=== PATIENT | female | born 1995 | race Caucasian/White ===

== ENCOUNTER 2021-10-10 14:06 | Observation (INO) | payer MEDICAID ==
[2021-10-10 15:43] VITALS: BP 125/77; PULSE 125
== END 2021-10-10 16:05 | disposition home or self-care (01) ==
LOC: WHC 14:06 → OB 14:55
PROVIDERS: ADMIT Obstetrics & Gynecology; ATTEND Obstetrics & Gynecology
DX: O24.419 Gestational diabetes mellitus in pregnancy, unspecified control (principal); Z3A.32 32 weeks gestation of pregnancy
CPT/HCPCS: 59025; 59426; G0378; 81002

== ENCOUNTER 2021-10-20 14:15 | Observation (INO) | payer MEDICAID, OTHER ==
[2021-10-20] MEDS ORDERED: Sodium Chloride 0.9% 1000 ML 1,000 ML ONE ×2 (14:38→15:39)
[2021-10-20] MEDS ORDERED: Sodium Chloride 0.9% 1000 ML 1,000 ML IV STA ×2 (14:39→15:38)
[2021-10-20] MEDS ORDERED: Zofran 4 MG/2 ML VIAL IV ONE (14:39)
[2021-10-20] MEDS ORDERED: Zofran 4 MG/2 ML VIAL ONE (14:41)
[2021-10-20 14:54] LABS: Absolute Neutrophil Ct (ANC) 12.72 (1.4-6.9); Basophil (Absolute #) 0.03 (0-0.4); Eosinophil % 0.2 % (0.00-5.0); Eosinophil (Absolute #) 0.03 (0-0.5); Hematocrit 32.1 % (35-47); Hemoglobin 9.7 gm/dl (12.0-16.0); Lymphocyte (Absolute #) 0.83 (1.0-4.6); Lymphocytes % 5.7 % (24.0-44.0); Mean Cell Volume 74.8 fl (78-100); Mean Corpuscular Hemoglobin 22.6 pg (26-32); Mean Corpuscular Hgb Concent. 30.2 g/dl (32-36); Mean Platelet Volume 10.4 fl (7.5-11.0); Monocyte (Absolute #) 0.83 (0.0-1.3); Monocytes % 5.7 % (0.0-12.0); Neutrophil % 88.2 % (36.0-66.0); Platelet Count 248 K/mm3 (150-450); Red Blood Count 4.29 M/mm3 (4.1-5.4); Red Cell Distribution Width 17.3 % (11.5-14.0); White Blood Count 14.4 K/mm3 (4.0-10.5)
--- NOTE | 2021-10-20 15:04 | ERPHSYRPT ---
- History of Present Illness Time Seen by Provider: 10/20/21 14:39 Source: patient Exam Limitations: no limitations Patient Subjective Stated Complaint: pt reports vomiting beginning yesterday with diarrhea as well, pt reports approx 12 episodes of vomiting today states sh e is unable to keep food or drink down. pt also reports lower mid abdominal pain that is like an intermittent ache, pt states she doesnt feel like she is having contractions. pt denies any vaginal bleeding or abnormal discharge. Triage Nursing Assessment: pt is aox3, pupils perrl, afebrile, resps easy and non labored, pt radial pulses bounding, equal bilat, cap refill < 2 seconds, pt with abdomen, abdomen tender to the lower mid quadrants, heart tones present at a rate of 164 during exam, strong quality, pt skin is pink warm dry. Physician History: 26 years old 2 para 1 at 34 weeks gestation presented in the ER with c hief complaint of gastroenteritis symptoms since yesterday. Patient reports having multiple episodes of nonprojectile, nonbilious vomiting and is unable to hold anything down. She also reports having multiple loose stool without hematochezia. Denies any hematemesis. Minimal abdominal discomfort/ache at times. Good movements as usual. Denies any pelvic cramping, vaginal bleeding or discharge. Denies any sick contact. No fever or chills reported. Patient feels weak fatigued tired and dehydrated. Has a heart rate in 130s on presentation with heart tones in 160s. Timing/Duration: yesterday, intermittent, gradual onset, worse Severity: moderate Associated Symptoms: nausea, vomiting, weakness Allergies/Adverse Reactions: No Known Drug Allergies Allergy (Verified 10/20/21 14:44) Home Medications: Metformin HCl 500 mg [Glucophage 500 MG] 500 mg PO DAILY 10/10/21 [History] Hx Tetanus, Diphtheria Vaccination/Date Given: Yes Hx Influenza Vaccination/Date Given: No Hx Pneumococcal Vaccination/Date Given: No Immunizations Up to Date: Yes Travel Risk - International Travel Have you traveled outside of the country in past 3 weeks: No - Coronavirus Screening Are you exhibiting any of the following symptoms?: No Close contact with a COVID-19 positive Pt in past 14-21 Days: No - Vaccine Status Have you recieved a Covid-19 vaccination: Yes 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 - Vaccination Dates Date of 2cond Vaccination (if applicable): unk - Review of Systems Constitutional: Fatigue, Weakness Eyes: No Symptoms Ears, Nose, & Throat: No Symptoms Respiratory: No Symptoms Cardiac: No Symptoms Abdominal/Gastrointestinal: Abdominal Pain, Nausea, Vomiting, Diarrhea Genitourinary Symptoms: No Symptoms Musculoskeletal: No Symptoms Skin: No Symptoms Neurological: No Symptoms Psychological: No Symptoms Endocrine: No Symptoms Hematologic/Lymphatic: No Symptoms Immunological/Allergic: No Symptoms - Past Medical History Pertinent Past Medical History: No Endocrine Medical History: Diabetes Type II Other Medical History: gestational DM - Past Surgical History Past Surgical History: Yes Neuro Surgical History: No Pertinent History Cardiac: No Pertinent History Respiratory: No Pertinent History Gastrointestinal: No Pertinent History Genitourinary: No Pertinent History Musculoskeletal: No Pertinent History Female Surgical History: No Pertinent History, Section Other Surgical History: PILONIDAL CYST. 11/16/20 per [facility] - Social History Smoking Status: Never smoker Exposure to second hand smoke: Yes Drug Use: none Patient Lives Alone: No - Female History Hx Now: Yes - Nursing Vital Signs Nursing Vital Signs: Initial Vital Signs Temperature 98.8 F 10/20/21 14:30 Pulse Rate 153 H 10/20/21 14:30 Respiratory Rate 23 10/20/21 14:30 Blood Pressure 134/88 10/20/21 14:30 O2 Sat by Pulse Oximetry 97 10/20/21 14:30 Pain Scale Pain Intensity 0 - Physical Exam General Appearance: no apparent distress, alert Eye Exam: PERRL/EOMI, eyes nml inspection Ears, Nose, Throat Exam: normal ENT inspection Neck Exam: normal inspection, non-tender, supple, full range of motion Respiratory Exam: normal breath sounds, lungs clear Cardiovascular Exam: normal heart sounds, tachycardia Gastrointestinal/Abdomen Exam: soft, normal bowel sounds, other (Gravid uterus), No tenderness Back Exam: normal inspection, normal range of motion Extremity Exam: normal inspection, normal range of motion Neurologic Exam: alert, oriented x 3, cooperative Skin Exam: normal color SpO2 Interpretation: normal SpO2: 97 O2 Delivery: Room Air - Course EKG Interpreted by Me: RATE (155), Sinus Tach, NORMAL AXIS, NORMAL INTERVALS, Non-specific ST Changes Ordered Tests: Medication Summary Discontinued Medications Generic Name Dose Route Start Last Admin Trade Name Freq PRN Reason Stop Dose Admin Acetaminophen 650 mg 10/20/21 18:44 Acetaminophen 325 Mg Tablet PO 11/19/21 18:43 Q4H PRN PRN PAIN AND/OR FEVER Sodium Chloride Confirm 10/20/21 14:38 Sodium Chloride 0.9% 1000 Ml Administered 10/20/21 14:39 Dose 1,000 mls @ ud .ROUTE .STK-MED ONE Sodium Chloride 1,000 mls @ 999 mls/hr 10/20/21 14:39 10/20/21 16:27 Sodium Chloride 0.9% 1000 Ml IV 10/20/21 15:39 Infused .Q1H1M STA Infusion Sodium Chloride 1,000 mls @ 999 mls/hr 10/20/21 15:38 10/20/21 16:46 Sodium Chloride 0.9% 1000 Ml IV 10/20/21 16:38 Infused .Q1H1M STA Infusion Sodium Chloride Confirm 10/20/21 15:39 Sodium Chloride 0.9% 1000 Ml Administered 10/20/21 15:40 Dose 1,000 mls @ ud .ROUTE .STK-MED ONE Ceftriaxone Sodium/Dextrose 1 g in 50 mls @ 100 mls/hr 10/20/21 17:51 10/20/21 18:23 Rocephin 1 Gm-D5w 50 Ml Bag IV 10/20/21 18:20 100 mls/hr STAT STA 100 mls/hr Administration Sodium Chloride 1,000 mls @ 150 mls/hr 10/20/21 18:00 10/20/21 19:48 Sodium Chloride 0.9% 1000 Ml IV 11/19/21 17:59 Not Given .Q6H40M KETURAH Ceftriaxone Sodium/Dextrose Confirm 10/20/21 18:22 Rocephin 1 Gm-D5w 50 Ml Bag Administered 10/20/21 18:23 Dose 1 g in 50 mls @ ud IV .STK-MED ONE Sodium Chloride 1,000 mls @ 150 mls/hr 10/20/21 18:45 10/20/21 19:02 Sodium Chloride 0.9% 1000 Ml IV 11/19/21 18:44 150 mls/hr .Q6H40M KETURAH Administration Lactated Ringer's Confirm 10/20/21 21:53 Lactated Ringers Administered 10/20/21 21:54 Dose 1,000 mls @ ud IV .STK-MED ONE Lactated Ringer's 1,000 mls @ 150 mls/hr 10/20/21 21:55 10/21/21 03:52 Lactated Ringers IV 11/19/21 21:54 150 mls/hr .Q6H40M KETURAH Administration Ondansetron HCl 4 mg 10/20/21 14:39 10/20/21 14:45 Ondansetron Hcl 4 Mg/2 Ml Vial IV 10/20/21 14:40 4 mg STAT ONE Administration Ondansetron HCl Confirm 10/20/21 14:41 Ondansetron Hcl 4 Mg/2 Ml Vial Administered 10/20/21 14:42 Dose 4 mg .ROUTE .STK-MED ONE Ondansetron HCl 4 mg 10/20/21 18:44 Ondansetron Hcl 4 Mg/2 Ml Vial IV 11/19/21 18:43 Q6H PRN PRN NAUSEA/VOMITING Lab/Rad Data: Laboratory Result Diagrams 10/20/21 14:40 10/20/21 14:40 Laboratory Results 10/20/21 10/20/21 10/20/21 Range/Units 16:54 14:45 14:40 WBC (4.0-10.5) K/mm3 RBC (4.1-5.4) M/mm3 Hgb (12.0-16.0) gm/dl Hct (35-47) % MCV (78-100) fl MCH (26-32) pg MCHC (32-36) g/dl RDW (11.5-14.0) % Plt Count (150-450) K/mm3 MPV (7.5-11.0) fl Gran % (36.0-66.0) % Eos # (Auto) (0-0.5) Absolute Lymphs (auto) (1.0-4.6) Absolute Monos (auto) (0.0-1.3) Lymphocytes % (24.0-44.0) % Monocytes % (0.0-12.0) % Eosinophils % (0.00-5.0) % Basophils % (0.0-0.4) % Absolute Granulocytes (1.4-6.9) Basophils # (0-0.4) Sodium 133 L (137-145) mmol/L Potassium 3.9 (3.5-5.1) mmol/L Chloride 105 (98-107) mmol/L Carbon Dioxide 15 L* (22-30) mmol/L Anion Gap 16.5 H (5-15) MEQ/L BUN 3 L (7-17) mg/dL Creatinine 0.44 L (0.52-1.04) mg/dL Estimated GFR > 60.0 ML/MIN Glucose 110 H (74-106) mg/dL Lactic Acid (0.4-2.0) Calcium 8.7 (8.4-10.2) mg/dL Magnesium 1.6 (1.6-2.3) mg/dL Total Bilirubin 0.90 (0.2-1.3) mg/dL AST 99 H (14-36) U/L ALT 119 H (0-35) U/L Alkaline Phosphatase 149 H (38-126) U/L Serum Total Protein 6.6 (6.3-8.2) g/dL Albumin 3.6 (3.5-5.0) g/dL Lipase 59 (23-300) U/L Urine Color YELLOW (YELLOW) Urine Appearance CLOUDY (CLEAR) Urine pH 5.0 (5-6) Ur Specific [place] 1.026 (1.005-1.025) Urine Protein 100 (Negative) Urine Ketones MODERATE (NEGATIVE) Urine Blood NEGATIVE (0-5) Jc/ul Urine Nitrite NEGATIVE (NEGATIVE) Urine Bilirubin NEGATIVE (NEGATIVE) Urine Urobilinogen NEGATIVE (0-1) mg/dL Ur Leukocyte Esterase LARGE (NEGATIVE) Urine WBC (Auto) 11-15 (0-5) /HPF Urine RBC (Auto) 6-10 (0-2) /HPF U Epithel Cells (Auto) FEW (FEW) /HPF Urine Bacteria (Auto) NONE (NEGATIVE) /HPF Urine Mucus (Auto) SLIGHT (NEGATIVE) /HPF Urine Culture Reflexed NO (NO) Urine Glucose 50 (NEGATIVE) mg/dL Influenza Type A Ag NEGATIVE (NEGATIVE) Influenza Type B Ag NEGATIVE (NEGATIVE) RSV (PCR) NEGATIVE (Negative) SARS-CoV-2 (PCR) NEGATIVE (NEGATIVE) 10/20/21 10/20/21 Range/Units 14:40 14:39 WBC 14.4 H (4.0-10.5) K/mm3 RBC 4.29 (4.1-5.4) M/mm3 Hgb 9.7 L (12.0-16.0) gm/dl Hct 32.1 L (35-47) % MCV 74.8 L (78-100) fl MCH 22.6 L (26-32) pg MCHC 30.2 L (32-36) g/dl RDW 17.3 H (11.5-14.0) % Plt Count 248 (150-450) K/mm3 MPV 10.4 (7.5-11.0) fl Gran % 88.2 H (36.0-66.0) % Eos # (Auto) 0.03 (0-0.5) Absolute Lymphs (auto) 0.83 L (1.0-4.6) Absolute Monos (auto) 0.83 (0.0-1.3) Lymphocytes % 5.7 L (24.0-44.0) % Monocytes % 5.7 (0.0-12.0) % Eosinophils % 0.2 (0.00-5.0) % Basophils % 0.2 (0.0-0.4) % Absolute Granulocytes 12.72 H (1.4-6.9) Basophils # 0.03 (0-0.4) Sodium (137-145) mmol/L Potassium (3.5-5.1) mmol/L Chloride (98-107) mmol/L Carbon Dioxide (22-30) mmol/L Anion Gap (5-15) MEQ/L BUN (7-17) mg/dL Creatinine (0.52-1.04) mg/dL Estimated GFR ML/MIN Glucose (74-106) mg/dL Lactic Acid 1.2 (0.4-2.0) Calcium (8.4-10.2) mg/dL Magnesium (1.6-2.3) mg/dL Total Bilirubin (0.2-1.3) mg/dL AST (14-36) U/L ALT (0-35) U/L Alkaline Phosphatase (38-126) U/L Serum Total Protein (6.3-8.2) g/dL Albumin (3.5-5.0) g/dL Lipase (23-300) U/L Urine Color (YELLOW) Urine Appearance (CLEAR) Urine pH (5-6) Ur Specific [place] (1.005-1.025) Urine Protein (Negative) Urine Ketones (NEGATIVE) Urine Blood (0-5) Jc/ul Urine Nitrite (NEGATIVE) Urine Bilirubin (NEGATIVE) Urine Urobilinogen (0-1) mg/dL Ur Leukocyte Esterase (NEGATIVE) Urine WBC (Auto) (0-5) /HPF Urine RBC (Auto) (0-2) /HPF U Epithel Cells (Auto) (FEW) /HPF Urine Bacteria (Auto) (NEGATIVE) /HPF Urine Mucus (Auto) (NEGATIVE) /HPF Urine Culture Reflexed (NO) Urine Glucose (NEGATIVE) mg/dL Influenza Type A Ag (NEGATIVE) Influenza Type B Ag (NEGATIVE) RSV (PCR) (Negative) SARS-CoV-2 (PCR) (NEGATIVE) - Progress Progress: improved, re-examined Progress Note: 10/20/21 17:53 26 years old 34-week gestation is evaluated for gastroenteritis. Patient was very tachycardic on presentation, given 2 boluses of fluid and heart rate improved in 120s. Patient initially had some contraction which subsided with hydration. Does not have any cramping. Work-up consistent with dehydration. Patient does have UTI and I have discussed with Dr. Zafar patient's primary OB, reviewed history, work-up and agreed with giving Rocephin and continue with IV hydration and patient is being admitted for observation. Discussed with : Mg Will see patient in: hospital (observation) Counseled pt/family regarding: lab results, diagnosis - Departure Departure Disposition: Observation Clinical Impression: Gastroenteritis, Dehydration during Qualifiers: Weeks of gestation: 34 weeks Qualified Code(s): Z3A.34 - 34 weeks gestation of Condition: Stable Critical Care Time: No
[2021-10-20 15:05] LABS: Appearance CLOUDY (CLEAR); Bilirubin NEGATIVE (NEGATIVE); Blood NEGATIVE Ery/ul (0-5); Epithelial Cells FEW /HPF (FEW); Glucose 50 mg/dL (NEGATIVE); Ketones MODERATE (NEGATIVE); Leukocyte Esterase LARGE (NEGATIVE); Mucus SLIGHT /HPF (NEGATIVE); Nitrite NEGATIVE (NEGATIVE); Protein,Urine Dip 100 (Negative); Specific Gravity 1.026 (1.005-1.025); Urobilinogen NEGATIVE mg/dL (0-1)
[2021-10-20 15:07] LABS: ALBUMIN 3.6 g/dL (3.5-5.0); ALKALINE PHOSPHATASE 149 U/L (38-126); ANION GAP 16.5 MEQ/L (5-15); BLOOD UREA NITROGEN 3 mg/dL (7-17); CHLORIDE 105 mmol/L (98-107); Calcium 8.7 mg/dL (8.4-10.2); Creatinine 1 0.44 mg/dL (0.52-1.04); EST GLOMERULAR FILTRATION RATE > 60.0 ML/MIN; Glucose 110 mg/dL (74-106); LIPASE 59 U/L (23-300); MAGNESIUM 1.6 mg/dL (1.6-2.3); Potassium 3.9 mmol/L (3.5-5.1); SGOT/AST 99 U/L (14-36); SGPT/ALT 119 U/L (0-35); SODIUM 133 mmol/L (137-145); Total Protein 6.6 g/dL (6.3-8.2)
[2021-10-20 15:08] LABS: Carbon Dioxide 15 mmol/L (22-30)
[2021-10-20 17:42] LABS: INFLUENZA A NEGATIVE (NEGATIVE); INFLUENZA B NEGATIVE (NEGATIVE); RESPIRATORY SYNCTIAL VIRUS NEGATIVE (Negative); SARS-CoV-2 Xpert Express NEGATIVE (NEGATIVE)
[2021-10-20] MEDS ORDERED: ROCEPHIN 1 Gm-D5w 50 ml Bag** 1 G/50 ML IVPB IV STA (17:51)
[2021-10-20] MEDS ORDERED: Sodium Chloride 0.9% 1000 ML 1,000 ML IV SCH ×2 (18:00→18:45)
[2021-10-20] MEDS ORDERED: ROCEPHIN 1 Gm-D5w 50 ml Bag** 1 G/50 ML IVPB IV ONE (18:22)
[2021-10-20] MEDS ORDERED: Zofran 4 MG/2 ML VIAL IV PRN (18:44)
[2021-10-20] MEDS ORDERED: TYLENOL 325 MG PO PRN (18:44)
[2021-10-20] MEDS ORDERED: Lactated Ringers 1,000 ML IV ONE (21:53)
[2021-10-20] MEDS: Lactated Ringers 1,000 ML IV SCH (21:58)
[2021-10-21 02:39] VITALS: O2SAT 97
[2021-10-21] MEDS: Lactated Ringers 1,000 ML IV SCH (03:52)
[2021-10-21 06:21] LABS: Hematocrit 25.8 % (35-47); Hemoglobin 7.6 gm/dl (12.0-16.0); Mean Cell Volume 76.1 fl (78-100); Mean Corpuscular Hemoglobin 22.4 pg (26-32); Mean Corpuscular Hgb Concent. 29.5 g/dl (32-36); Mean Platelet Volume 10.4 fl (7.5-11.0); Platelet Count 205 K/mm3 (150-450); Red Blood Count 3.39 M/mm3 (4.1-5.4); Red Cell Distribution Width 17.2 % (11.5-14.0); White Blood Count 12.2 K/mm3 (4.0-10.5)
[2021-10-21 06:31] LABS: ALBUMIN 2.7 g/dL (3.5-5.0); ALKALINE PHOSPHATASE 109 U/L (38-126); ANION GAP 7.2 MEQ/L (5-15); CHLORIDE 110 mmol/L (98-107); Calcium 7.9 mg/dL (8.4-10.2); Carbon Dioxide 19 mmol/L (22-30); Creatinine 1 0.38 mg/dL (0.52-1.04); EST GLOMERULAR FILTRATION RATE > 60.0 ML/MIN; Glucose 112 mg/dL (74-106); Potassium 3.4 mmol/L (3.5-5.1); SGOT/AST 68 U/L (14-36); SGPT/ALT 89 U/L (0-35); SODIUM 133 mmol/L (137-145); Total Protein 5.5 g/dL (6.3-8.2)
[2021-10-21 06:37] LABS: BLOOD UREA NITROGEN < 2 mg/dL (7-17)
[2021-10-21 07:17] LABS: ANISOCYTOSIS 1+; BAND 1 % (0.0-2.0); Hypochromia 1+; Lymphocytes 11 % (24-44); Monocyte 1 % (0.0-12.0); Neutrophils 87 % (36.0-66.0); Platelet Estimate NORMAL (NORMAL); Polychromasia 1+; Total Cells Counted 100
[2021-10-21 09:07] VITALS: BP 113/66; PULSE 104
--- NOTE | 2021-10-21 09:20 | PCM.HP ---
History of Present Illness - Chief Complaint Chief Complaint: Gastroenteritis History of Present Illness: is a 26 year old female. 26 yo iup 34 wks gestation with hx of previous csection came into er secondary to nausea vomiting diarrhea that began two days ago and not being able to keep anything down. states irregular contx however at this time feeling much better without contx. Medications & Allergies Home Medications: Home Medication List Metformin HCl 500 mg [Glucophage 500 MG] 500 mg PO DAILY 10/10/21 [History Confirmed 10/20/21] Allergies/Adverse Reactions: Allergies Allergy/AdvReac Type Severity Reaction Status Date / Time No Known Drug Allergies Allergy Verified 10/20/21 14:44 - Past Medical History Past Medical History: No Endocrine Medical History: Diabetes Type II Comment: gestational DM - Female History Are you now?: Yes Expected Date of Delivery: 11/30/21 - Past Surgical History Past Surgical History: Yes Neuro Surgical History: No Pertinent History Cardiac History: No Pertinent History Respiratory Surgery: No Pertinent History GI Surgical History: No Pertinent History Genitourinary Surgical Hx: No Pertinent History Musculskeletal Surgical Hx: No Pertinent History Female Surgical History: No Pertinent History, Section Other Surgical History: PILONIDAL CYST. 11/16/20 per [facility] - Social History Smoking Status: Never smoker Exposure to second hand smoke: Yes Alcohol: None Drug Use: none - Physical Exam Vital Signs: Vital Signs - 24 hr Temp Pulse Resp BP BP Pulse Ox 10/21/21 08:00 97.7 F 104 H 18 113/66 10/21/21 02:00 98.5 F 125 H 19 131/75 97 10/21/21 00:07 98.8 F 123 H 20 134/75 95 10/20/21 23:32 97 10/20/21 22:00 98.9 F 124 H 20 126/74 96 10/20/21 20:00 98.7 F 120 H 22 120/69 97 10/20/21 18:52 99.0 F 125 H 20 129/70 10/20/21 18:31 99.0 F 125 H 20 129/70 10/20/21 18:00 99.0 F 125 H 20 129/70 10/20/21 17:06 120 H 18 122/85 98 10/20/21 16:00 121 H 20 124/75 99 10/20/21 14:30 98.8 F 153 H 23 134/88 97 General Appearance: no apparent distress Neurologic Exam: alert Respiratory Exam: normal breath sounds Cardiovascular Exam: regular rate/rhythm Pelvic Exam: not done Results - Labs Lab/Micro Results: Lab Results-Last 24 Hours 10/20/21 10/20/21 10/20/21 Range/Units 14:39 14:40 14:40 WBC 14.4 H (4.0-10.5) K/mm3 RBC 4.29 (4.1-5.4) M/mm3 Hgb 9.7 L (12.0-16.0) gm/dl Hct 32.1 L (35-47) % MCV 74.8 L (78-100) fl MCH 22.6 L (26-32) pg MCHC 30.2 L (32-36) g/dl RDW 17.3 H (11.5-14.0) % Plt Count 248 (150-450) K/mm3 MPV 10.4 (7.5-11.0) fl Gran % 88.2 H (36.0-66.0) % Eos # (Auto) 0.03 (0-0.5) Absolute Lymphs (auto) 0.83 L (1.0-4.6) Absolute Monos (auto) 0.83 (0.0-1.3) Lymphocytes % 5.7 L (24.0-44.0) % Monocytes % 5.7 (0.0-12.0) % Eosinophils % 0.2 (0.00-5.0) % Basophils % 0.2 (0.0-0.4) % Absolute Granulocytes 12.72 H (1.4-6.9) Segmented Neutrophils (36.0-66.0) % Band Neutrophils (0.0-2.0) % Lymphocytes (Manual) (24-44) % Monocytes (Manual) (0.0-12.0) % Basophils # 0.03 (0-0.4) Hypochromia Platelet Estimate (NORMAL) RBC Morphology Polychromasia Anisocytosis Sodium 133 L (137-145) mmol/L Potassium 3.9 (3.5-5.1) mmol/L Chloride 105 (98-107) mmol/L Carbon Dioxide 15 L* (22-30) mmol/L Anion Gap 16.5 H (5-15) MEQ/L BUN 3 L (7-17) mg/dL Creatinine 0.44 L (0.52-1.04) mg/dL Estimated GFR > 60.0 ML/MIN Glucose 110 H (74-106) mg/dL POC Glucometer (74 to 106) mg/dL Lactic Acid 1.2 (0.4-2.0) Calcium 8.7 (8.4-10.2) mg/dL Magnesium 1.6 (1.6-2.3) mg/dL Total Bilirubin 0.90 (0.2-1.3) mg/dL AST 99 H (14-36) U/L ALT 119 H (0-35) U/L Alkaline Phosphatase 149 H (38-126) U/L Serum Total Protein 6.6 (6.3-8.2) g/dL Albumin 3.6 (3.5-5.0) g/dL Lipase 59 (23-300) U/L Free T4 (0.76-1.46) ng/dL TSH 3rd Generation (0.47-4.68) mIU/L Urine Color (YELLOW) Urine Appearance (CLEAR) Urine pH (5-6) Ur Specific [place] (1.005-1.025) Urine Protein (Negative) Urine Ketones (NEGATIVE) Urine Blood (0-5) Jc/ul Urine Nitrite (NEGATIVE) Urine Bilirubin (NEGATIVE) Urine Urobilinogen (0-1) mg/dL Ur Leukocyte Esterase (NEGATIVE) Urine WBC (Auto) (0-5) /HPF Urine RBC (Auto) (0-2) /HPF U Epithel Cells (Auto) (FEW) /HPF Urine Bacteria (Auto) (NEGATIVE) /HPF Urine Mucus (Auto) (NEGATIVE) /HPF Urine Culture Reflexed (NO) Urine Glucose (NEGATIVE) mg/dL Influenza Type A Ag (NEGATIVE) Influenza Type B Ag (NEGATIVE) RSV (PCR) (Negative) SARS-CoV-2 (PCR) (NEGATIVE) 10/20/21 10/20/21 10/20/21 Range/Units 14:45 16:54 21:03 WBC (4.0-10.5) K/mm3 RBC (4.1-5.4) M/mm3 Hgb (12.0-16.0) gm/dl Hct (35-47) % MCV (78-100) fl MCH (26-32) pg MCHC (32-36) g/dl RDW (11.5-14.0) % Plt Count (150-450) K/mm3 MPV (7.5-11.0) fl Gran % (36.0-66.0) % Eos # (Auto) (0-0.5) Absolute Lymphs (auto) (1.0-4.6) Absolute Monos (auto) (0.0-1.3) Lymphocytes % (24.0-44.0) % Monocytes % (0.0-12.0) % Eosinophils % (0.00-5.0) % Basophils % (0.0-0.4) % Absolute Granulocytes (1.4-6.9) Segmented Neutrophils (36.0-66.0) % Band Neutrophils (0.0-2.0) % Lymphocytes (Manual) (24-44) % Monocytes (Manual) (0.0-12.0) % Basophils # (0-0.4) Hypochromia Platelet Estimate (NORMAL) RBC Morphology Polychromasia Anisocytosis Sodium (137-145) mmol/L Potassium (3.5-5.1) mmol/L Chloride (98-107) mmol/L Carbon Dioxide (22-30) mmol/L Anion Gap (5-15) MEQ/L BUN (7-17) mg/dL Creatinine (0.52-1.04) mg/dL Estimated GFR ML/MIN Glucose (74-106) mg/dL POC Glucometer 86 (74 to 106) mg/dL Lactic Acid (0.4-2.0) Calcium (8.4-10.2) mg/dL Magnesium (1.6-2.3) mg/dL Total Bilirubin (0.2-1.3) mg/dL AST (14-36) U/L ALT (0-35) U/L Alkaline Phosphatase (38-126) U/L Serum Total Protein (6.3-8.2) g/dL Albumin (3.5-5.0) g/dL Lipase (23-300) U/L Free T4 (0.76-1.46) ng/dL TSH 3rd Generation (0.47-4.68) mIU/L Urine Color YELLOW (YELLOW) Urine Appearance CLOUDY (CLEAR) Urine pH 5.0 (5-6) Ur Specific [place] 1.026 (1.005-1.025) Urine Protein 100 (Negative) Urine Ketones MODERATE (NEGATIVE) Urine Blood NEGATIVE (0-5) Jc/ul Urine Nitrite NEGATIVE (NEGATIVE) Urine Bilirubin NEGATIVE (NEGATIVE) Urine Urobilinogen NEGATIVE (0-1) mg/dL Ur Leukocyte Esterase LARGE (NEGATIVE) Urine WBC (Auto) 11-15 (0-5) /HPF Urine RBC (Auto) 6-10 (0-2) /HPF U Epithel Cells (Auto) FEW (FEW) /HPF Urine Bacteria (Auto) NONE (NEGATIVE) /HPF Urine Mucus (Auto) SLIGHT (NEGATIVE) /HPF Urine Culture Reflexed NO (NO) Urine Glucose 50 (NEGATIVE) mg/dL Influenza Type A Ag NEGATIVE (NEGATIVE) Influenza Type B Ag NEGATIVE (NEGATIVE) RSV (PCR) NEGATIVE (Negative) SARS-CoV-2 (PCR) NEGATIVE (NEGATIVE) 10/21/21 10/21/21 10/21/21 Range/Units 05:40 05:40 05:40 WBC 12.2 H (4.0-10.5) K/mm3 RBC 3.39 L (4.1-5.4) M/mm3 Hgb 7.6 L D (12.0-16.0) gm/dl Hct 25.8 L (35-47) % MCV 76.1 L (78-100) fl MCH 22.4 L (26-32) pg MCHC 29.5 L (32-36) g/dl RDW 17.2 H (11.5-14.0) % Plt Count 205 (150-450) K/mm3 MPV 10.4 (7.5-11.0) fl Gran % (36.0-66.0) % Eos # (Auto) (0-0.5) Absolute Lymphs (auto) (1.0-4.6) Absolute Monos (auto) (0.0-1.3) Lymphocytes % (24.0-44.0) % Monocytes % (0.0-12.0) % Eosinophils % (0.00-5.0) % Basophils % (0.0-0.4) % Absolute Granulocytes (1.4-6.9) Segmented Neutrophils 87 H (36.0-66.0) % Band Neutrophils 1 (0.0-2.0) % Lymphocytes (Manual) 11 L (24-44) % Monocytes (Manual) 1 (0.0-12.0) % Basophils # (0-0.4) Hypochromia 1+ Platelet Estimate NORMAL (NORMAL) RBC Morphology ABNORMAL Polychromasia 1+ Anisocytosis 1+ Sodium 133 L (137-145) mmol/L Potassium 3.4 L (3.5-5.1) mmol/L Chloride 110 H (98-107) mmol/L Carbon Dioxide 19 L (22-30) mmol/L Anion Gap 7.2 (5-15) MEQ/L BUN < 2 L (7-17) mg/dL Creatinine 0.38 L (0.52-1.04) mg/dL Estimated GFR > 60.0 ML/MIN Glucose 112 H (74-106) mg/dL POC Glucometer (74 to 106) mg/dL Lactic Acid (0.4-2.0) Calcium 7.9 L (8.4-10.2) mg/dL Magnesium (1.6-2.3) mg/dL Total Bilirubin 0.60 (0.2-1.3) mg/dL AST 68 H (14-36) U/L ALT 89 H (0-35) U/L Alkaline Phosphatase 109 (38-126) U/L Serum Total Protein 5.5 L (6.3-8.2) g/dL Albumin 2.7 L (3.5-5.0) g/dL Lipase (23-300) U/L Free T4 (0.76-1.46) ng/dL TSH 3rd Generation 1.100 (0.47-4.68) mIU/L Urine Color (YELLOW) Urine Appearance (CLEAR) Urine pH (5-6) Ur Specific [place] (1.005-1.025) Urine Protein (Negative) Urine Ketones (NEGATIVE) Urine Blood (0-5) Jc/ul Urine Nitrite (NEGATIVE) Urine Bilirubin (NEGATIVE) Urine Urobilinogen (0-1) mg/dL Ur Leukocyte Esterase (NEGATIVE) Urine WBC (Auto) (0-5) /HPF Urine RBC (Auto) (0-2) /HPF U Epithel Cells (Auto) (FEW) /HPF Urine Bacteria (Auto) (NEGATIVE) /HPF Urine Mucus (Auto) (NEGATIVE) /HPF Urine Culture Reflexed (NO) Urine Glucose (NEGATIVE) mg/dL Influenza Type A Ag (NEGATIVE) Influenza Type B Ag (NEGATIVE) RSV (PCR) (Negative) SARS-CoV-2 (PCR) (NEGATIVE) 10/21/21 Range/Units 05:40 WBC (4.0-10.5) K/mm3 RBC (4.1-5.4) M/mm3 Hgb (12.0-16.0) gm/dl Hct (35-47) % MCV (78-100) fl MCH (26-32) pg MCHC (32-36) g/dl RDW (11.5-14.0) % Plt Count (150-450) K/mm3 MPV (7.5-11.0) fl Gran % (36.0-66.0) % Eos # (Auto) (0-0.5) Absolute Lymphs (auto) (1.0-4.6) Absolute Monos (auto) (0.0-1.3) Lymphocytes % (24.0-44.0) % Monocytes % (0.0-12.0) % Eosinophils % (0.00-5.0) % Basophils % (0.0-0.4) % Absolute Granulocytes (1.4-6.9) Segmented Neutrophils (36.0-66.0) % Band Neutrophils (0.0-2.0) % Lymphocytes (Manual) (24-44) % Monocytes (Manual) (0.0-12.0) % Basophils # (0-0.4) Hypochromia Platelet Estimate (NORMAL) RBC Morphology Polychromasia Anisocytosis Sodium (137-145) mmol/L Potassium (3.5-5.1) mmol/L Chloride (98-107) mmol/L Carbon Dioxide (22-30) mmol/L Anion Gap (5-15) MEQ/L BUN (7-17) mg/dL Creatinine (0.52-1.04) mg/dL Estimated GFR ML/MIN Glucose (74-106) mg/dL POC Glucometer (74 to 106) mg/dL Lactic Acid (0.4-2.0) Calcium (8.4-10.2) mg/dL Magnesium (1.6-2.3) mg/dL Total Bilirubin (0.2-1.3) mg/dL AST (14-36) U/L ALT (0-35) U/L Alkaline Phosphatase (38-126) U/L Serum Total Protein (6.3-8.2) g/dL Albumin (3.5-5.0) g/dL Lipase (23-300) U/L Free T4 1.15 (0.76-1.46) ng/dL TSH 3rd Generation (0.47-4.68) mIU/L Urine Color (YELLOW) Urine Appearance (CLEAR) Urine pH (5-6) Ur Specific [place] (1.005-1.025) Urine Protein (Negative) Urine Ketones (NEGATIVE) Urine Blood (0-5) Jc/ul Urine Nitrite (NEGATIVE) Urine Bilirubin (NEGATIVE) Urine Urobilinogen (0-1) mg/dL Ur Leukocyte Esterase (NEGATIVE) Urine WBC (Auto) (0-5) /HPF Urine RBC (Auto) (0-2) /HPF U Epithel Cells (Auto) (FEW) /HPF Urine Bacteria (Auto) (NEGATIVE) /HPF Urine Mucus (Auto) (NEGATIVE) /HPF Urine Culture Reflexed (NO) Urine Glucose (NEGATIVE) mg/dL Influenza Type A Ag (NEGATIVE) Influenza Type B Ag (NEGATIVE) RSV (PCR) (Negative) SARS-CoV-2 (PCR) (NEGATIVE) Accuchecks Date 10/21/21 Date 10/20/21 Time 06:30 Time 21:00 Assessment/Plan (1) Gastroenteritis Current Visit: Yes Status: Acute Code(s): K52.9 - NONINFECTIVE GASTROENTERITIS AND COLITIS, UNSPECIFIED
--- NOTE | 2021-10-21 09:26 | PCM.DS ---
Discharge Summary Date of Admission: 10/20/21 18:31 Admitting Physician: DWAYNE WHITE DO Consults: Consults on Case 10/21/21 08:00 Consult Physician ROUTINE Primary Care Provider: NO FAMILY DOCTOR Allergies Allergies No Known Drug Allergies Allergy (Verified 10/20/21 14:44) Hospital Summary - Hospital Course Hospital Course: pt is 26 yo and 34 wks gestation admitted for observationon oct 20 for gastroenteritis and was given iv hydration and zofran and now feeling much better without diarrhea, vomiting, or nausea. states feeling much better. labs reviewed with her and understands to call office for worsening condition. all questions answered to her satisfaction and at this time pt is stable for discharge. pt has an appt this week to fu in office. - Vitals & Intake/Output Vital Signs: Vital Signs Temperature 97.7 F 10/21/21 08:00 Pulse Rate 104 H 10/21/21 08:00 Respiratory Rate 18 10/21/21 08:00 Blood Pressure 113/66 10/21/21 08:00 O2 Sat by Pulse Oximetry 97 10/21/21 02:00 Intake & Output: Intake & Output 10/18/21 10/19/21 10/20/21 10/21/21 11:59 11:59 11:59 11:59 Intake Total 2634 Output Total 2400 Balance 234 Weight 90.718 kg - Lab Result Diagrams: 10/21/21 05:40 10/21/21 05:40 Lab Results-Last 24 Hrs: Lab Results-Last 24 Hours 10/20/21 10/20/21 10/20/21 Range/Units 14:39 14:40 14:40 WBC 14.4 H (4.0-10.5) K/mm3 RBC 4.29 (4.1-5.4) M/mm3 Hgb 9.7 L (12.0-16.0) gm/dl Hct 32.1 L (35-47) % MCV 74.8 L (78-100) fl MCH 22.6 L (26-32) pg MCHC 30.2 L (32-36) g/dl RDW 17.3 H (11.5-14.0) % Plt Count 248 (150-450) K/mm3 MPV 10.4 (7.5-11.0) fl Gran % 88.2 H (36.0-66.0) % Eos # (Auto) 0.03 (0-0.5) Absolute Lymphs (auto) 0.83 L (1.0-4.6) Absolute Monos (auto) 0.83 (0.0-1.3) Lymphocytes % 5.7 L (24.0-44.0) % Monocytes % 5.7 (0.0-12.0) % Eosinophils % 0.2 (0.00-5.0) % Basophils % 0.2 (0.0-0.4) % Absolute Granulocytes 12.72 H (1.4-6.9) Segmented Neutrophils (36.0-66.0) % Band Neutrophils (0.0-2.0) % Lymphocytes (Manual) (24-44) % Monocytes (Manual) (0.0-12.0) % Basophils # 0.03 (0-0.4) Hypochromia Platelet Estimate (NORMAL) RBC Morphology Polychromasia Anisocytosis Sodium 133 L (137-145) mmol/L Potassium 3.9 (3.5-5.1) mmol/L Chloride 105 (98-107) mmol/L Carbon Dioxide 15 L* (22-30) mmol/L Anion Gap 16.5 H (5-15) MEQ/L BUN 3 L (7-17) mg/dL Creatinine 0.44 L (0.52-1.04) mg/dL Estimated GFR > 60.0 ML/MIN Glucose 110 H (74-106) mg/dL POC Glucometer (74 to 106) mg/dL Lactic Acid 1.2 (0.4-2.0) Calcium 8.7 (8.4-10.2) mg/dL Magnesium 1.6 (1.6-2.3) mg/dL Total Bilirubin 0.90 (0.2-1.3) mg/dL AST 99 H (14-36) U/L ALT 119 H (0-35) U/L Alkaline Phosphatase 149 H (38-126) U/L Serum Total Protein 6.6 (6.3-8.2) g/dL Albumin 3.6 (3.5-5.0) g/dL Lipase 59 (23-300) U/L Free T4 (0.76-1.46) ng/dL TSH 3rd Generation (0.47-4.68) mIU/L Urine Color (YELLOW) Urine Appearance (CLEAR) Urine pH (5-6) Ur Specific [place] (1.005-1.025) Urine Protein (Negative) Urine Ketones (NEGATIVE) Urine Blood (0-5) Jc/ul Urine Nitrite (NEGATIVE) Urine Bilirubin (NEGATIVE) Urine Urobilinogen (0-1) mg/dL Ur Leukocyte Esterase (NEGATIVE) Urine WBC (Auto) (0-5) /HPF Urine RBC (Auto) (0-2) /HPF U Epithel Cells (Auto) (FEW) /HPF Urine Bacteria (Auto) (NEGATIVE) /HPF Urine Mucus (Auto) (NEGATIVE) /HPF Urine Culture Reflexed (NO) Urine Glucose (NEGATIVE) mg/dL Influenza Type A Ag (NEGATIVE) Influenza Type B Ag (NEGATIVE) RSV (PCR) (Negative) SARS-CoV-2 (PCR) (NEGATIVE) 10/20/21 10/20/21 10/20/21 Range/Units 14:45 16:54 21:03 WBC (4.0-10.5) K/mm3 RBC (4.1-5.4) M/mm3 Hgb (12.0-16.0) gm/dl Hct (35-47) % MCV (78-100) fl MCH (26-32) pg MCHC (32-36) g/dl RDW (11.5-14.0) % Plt Count (150-450) K/mm3 MPV (7.5-11.0) fl Gran % (36.0-66.0) % Eos # (Auto) (0-0.5) Absolute Lymphs (auto) (1.0-4.6) Absolute Monos (auto) (0.0-1.3) Lymphocytes % (24.0-44.0) % Monocytes % (0.0-12.0) % Eosinophils % (0.00-5.0) % Basophils % (0.0-0.4) % Absolute Granulocytes (1.4-6.9) Segmented Neutrophils (36.0-66.0) % Band Neutrophils (0.0-2.0) % Lymphocytes (Manual) (24-44) % Monocytes (Manual) (0.0-12.0) % Basophils # (0-0.4) Hypochromia Platelet Estimate (NORMAL) RBC Morphology Polychromasia Anisocytosis Sodium (137-145) mmol/L Potassium (3.5-5.1) mmol/L Chloride (98-107) mmol/L Carbon Dioxide (22-30) mmol/L Anion Gap (5-15) MEQ/L BUN (7-17) mg/dL Creatinine (0.52-1.04) mg/dL Estimated GFR ML/MIN Glucose (74-106) mg/dL POC Glucometer 86 (74 to 106) mg/dL Lactic Acid (0.4-2.0) Calcium (8.4-10.2) mg/dL Magnesium (1.6-2.3) mg/dL Total Bilirubin (0.2-1.3) mg/dL AST (14-36) U/L ALT (0-35) U/L Alkaline Phosphatase (38-126) U/L Serum Total Protein (6.3-8.2) g/dL Albumin (3.5-5.0) g/dL Lipase (23-300) U/L Free T4 (0.76-1.46) ng/dL TSH 3rd Generation (0.47-4.68) mIU/L Urine Color YELLOW (YELLOW) Urine Appearance CLOUDY (CLEAR) Urine pH 5.0 (5-6) Ur Specific [place] 1.026 (1.005-1.025) Urine Protein 100 (Negative) Urine Ketones MODERATE (NEGATIVE) Urine Blood NEGATIVE (0-5) Jc/ul Urine Nitrite NEGATIVE (NEGATIVE) Urine Bilirubin NEGATIVE (NEGATIVE) Urine Urobilinogen NEGATIVE (0-1) mg/dL Ur Leukocyte Esterase LARGE (NEGATIVE) Urine WBC (Auto) 11-15 (0-5) /HPF Urine RBC (Auto) 6-10 (0-2) /HPF U Epithel Cells (Auto) FEW (FEW) /HPF Urine Bacteria (Auto) NONE (NEGATIVE) /HPF Urine Mucus (Auto) SLIGHT (NEGATIVE) /HPF Urine Culture Reflexed NO (NO) Urine Glucose 50 (NEGATIVE) mg/dL Influenza Type A Ag NEGATIVE (NEGATIVE) Influenza Type B Ag NEGATIVE (NEGATIVE) RSV (PCR) NEGATIVE (Negative) SARS-CoV-2 (PCR) NEGATIVE (NEGATIVE) 10/21/21 10/21/21 10/21/21 Range/Units 05:40 05:40 05:40 WBC 12.2 H (4.0-10.5) K/mm3 RBC 3.39 L (4.1-5.4) M/mm3 Hgb 7.6 L D (12.0-16.0) gm/dl Hct 25.8 L (35-47) % MCV 76.1 L (78-100) fl MCH 22.4 L (26-32) pg MCHC 29.5 L (32-36) g/dl RDW 17.2 H (11.5-14.0) % Plt Count 205 (150-450) K/mm3 MPV 10.4 (7.5-11.0) fl Gran % (36.0-66.0) % Eos # (Auto) (0-0.5) Absolute Lymphs (auto) (1.0-4.6) Absolute Monos (auto) (0.0-1.3) Lymphocytes % (24.0-44.0) % Monocytes % (0.0-12.0) % Eosinophils % (0.00-5.0) % Basophils % (0.0-0.4) % Absolute Granulocytes (1.4-6.9) Segmented Neutrophils 87 H (36.0-66.0) % Band Neutrophils 1 (0.0-2.0) % Lymphocytes (Manual) 11 L (24-44) % Monocytes (Manual) 1 (0.0-12.0) % Basophils # (0-0.4) Hypochromia 1+ Platelet Estimate NORMAL (NORMAL) RBC Morphology ABNORMAL Polychromasia 1+ Anisocytosis 1+ Sodium 133 L (137-145) mmol/L Potassium 3.4 L (3.5-5.1) mmol/L Chloride 110 H (98-107) mmol/L Carbon Dioxide 19 L (22-30) mmol/L Anion Gap 7.2 (5-15) MEQ/L BUN < 2 L (7-17) mg/dL Creatinine 0.38 L (0.52-1.04) mg/dL Estimated GFR > 60.0 ML/MIN Glucose 112 H (74-106) mg/dL POC Glucometer (74 to 106) mg/dL Lactic Acid (0.4-2.0) Calcium 7.9 L (8.4-10.2) mg/dL Magnesium (1.6-2.3) mg/dL Total Bilirubin 0.60 (0.2-1.3) mg/dL AST 68 H (14-36) U/L ALT 89 H (0-35) U/L Alkaline Phosphatase 109 (38-126) U/L Serum Total Protein 5.5 L (6.3-8.2) g/dL Albumin 2.7 L (3.5-5.0) g/dL Lipase (23-300) U/L Free T4 (0.76-1.46) ng/dL TSH 3rd Generation 1.100 (0.47-4.68) mIU/L Urine Color (YELLOW) Urine Appearance (CLEAR) Urine pH (5-6) Ur Specific [place] (1.005-1.025) Urine Protein (Negative) Urine Ketones (NEGATIVE) Urine Blood (0-5) Jc/ul Urine Nitrite (NEGATIVE) Urine Bilirubin (NEGATIVE) Urine Urobilinogen (0-1) mg/dL Ur Leukocyte Esterase (NEGATIVE) Urine WBC (Auto) (0-5) /HPF Urine RBC (Auto) (0-2) /HPF U Epithel Cells (Auto) (FEW) /HPF Urine Bacteria (Auto) (NEGATIVE) /HPF Urine Mucus (Auto) (NEGATIVE) /HPF Urine Culture Reflexed (NO) Urine Glucose (NEGATIVE) mg/dL Influenza Type A Ag (NEGATIVE) Influenza Type B Ag (NEGATIVE) RSV (PCR) (Negative) SARS-CoV-2 (PCR) (NEGATIVE) 10/21/21 Range/Units 05:40 WBC (4.0-10.5) K/mm3 RBC (4.1-5.4) M/mm3 Hgb (12.0-16.0) gm/dl Hct (35-47) % MCV (78-100) fl MCH (26-32) pg MCHC (32-36) g/dl RDW (11.5-14.0) % Plt Count (150-450) K/mm3 MPV (7.5-11.0) fl Gran % (36.0-66.0) % Eos # (Auto) (0-0.5) Absolute Lymphs (auto) (1.0-4.6) Absolute Monos (auto) (0.0-1.3) Lymphocytes % (24.0-44.0) % Monocytes % (0.0-12.0) % Eosinophils % (0.00-5.0) % Basophils % (0.0-0.4) % Absolute Granulocytes (1.4-6.9) Segmented Neutrophils (36.0-66.0) % Band Neutrophils (0.0-2.0) % Lymphocytes (Manual) (24-44) % Monocytes (Manual) (0.0-12.0) % Basophils # (0-0.4) Hypochromia Platelet Estimate (NORMAL) RBC Morphology Polychromasia Anisocytosis Sodium (137-145) mmol/L Potassium (3.5-5.1) mmol/L Chloride (98-107) mmol/L Carbon Dioxide (22-30) mmol/L Anion Gap (5-15) MEQ/L BUN (7-17) mg/dL Creatinine (0.52-1.04) mg/dL Estimated GFR ML/MIN Glucose (74-106) mg/dL POC Glucometer (74 to 106) mg/dL Lactic Acid (0.4-2.0) Calcium (8.4-10.2) mg/dL Magnesium (1.6-2.3) mg/dL Total Bilirubin (0.2-1.3) mg/dL AST (14-36) U/L ALT (0-35) U/L Alkaline Phosphatase (38-126) U/L Serum Total Protein (6.3-8.2) g/dL Albumin (3.5-5.0) g/dL Lipase (23-300) U/L Free T4 1.15 (0.76-1.46) ng/dL TSH 3rd Generation (0.47-4.68) mIU/L Urine Color (YELLOW) Urine Appearance (CLEAR) Urine pH (5-6) Ur Specific [place] (1.005-1.025) Urine Protein (Negative) Urine Ketones (NEGATIVE) Urine Blood (0-5) Jc/ul Urine Nitrite (NEGATIVE) Urine Bilirubin (NEGATIVE) Urine Urobilinogen (0-1) mg/dL Ur Leukocyte Esterase (NEGATIVE) Urine WBC (Auto) (0-5) /HPF Urine RBC (Auto) (0-2) /HPF U Epithel Cells (Auto) (FEW) /HPF Urine Bacteria (Auto) (NEGATIVE) /HPF Urine Mucus (Auto) (NEGATIVE) /HPF Urine Culture Reflexed (NO) Urine Glucose (NEGATIVE) mg/dL Influenza Type A Ag (NEGATIVE) Influenza Type B Ag (NEGATIVE) RSV (PCR) (Negative) SARS-CoV-2 (PCR) (NEGATIVE) Micro Results-Entire Visit: Accuchecks Date 10/21/21 Date 10/20/21 Time 06:30 Time 21:00 - Procedures and Test Procedures and Tests throughout Hospitalization: Therapy Orders & Screens 10/21/21 04:50 EKG ROUTINE Comment: Diagnosis: Gastroenteritis Final Diagnosis/Problem List - Final Discharge Diagnosis/Problem (1) Gastroenteritis Current Visit: Yes Status: Acute Code(s): K52.9 - NONINFECTIVE GASTROENTERITIS AND COLITIS, UNSPECIFIED - Discharge Disposition: Home, Self-Care Condition: Stable Prescriptions: No Action Metformin HCl 500 mg [Glucophage 500 MG] 500 mg PO DAILY Follow up with: DOCTOR,NO FAMILY [Primary Care Provider] - DWAYNE WHITE DO [ACTIVE STAFF] - Call for Appointment (fu office as scheduled)
== END 2021-10-21 10:10 | disposition home or self-care (01) ==
LOC: ED 14:15 → OB 18:31
PROVIDERS: ADMIT Obstetrics & Gynecology; ATTEND Obstetrics & Gynecology
DX: O26.893 Other specified pregnancy related conditions, third trimester (principal); K52.9 Noninfective gastroenteritis and colitis, unspecified; O24.419 Gestational diabetes mellitus in pregnancy, unspecified control; O23.43 Unspecified infection of urinary tract in pregnancy, third trimester; N39.0 Urinary tract infection, site not specified; E86.0 Dehydration; R00.0 Tachycardia, unspecified; Z3A.34 34 weeks gestation of pregnancy; Z79.899 Other long term (current) drug therapy
CPT/HCPCS: 0241U; 36000; 36415; 80053; 81001; 82947; 83605; 83690; 83735; 84439; 84443; 85025; 93005; 96360; 96374; 99285; G0378; J0696; J2405

== ENCOUNTER 2021-10-31 14:55 | Observation (INO) | payer OTHER ==
[2021-10-31 16:42] VITALS: BP 123/74; PULSE 111
== END 2021-10-31 16:17 | disposition home or self-care (01) ==
LOC: WHC 14:55 → OB 15:24
PROVIDERS: ADMIT Obstetrics & Gynecology; ATTEND Obstetrics & Gynecology
DX: O24.419 Gestational diabetes mellitus in pregnancy, unspecified control (principal); Z3A.35 35 weeks gestation of pregnancy
CPT/HCPCS: 59025; 59426; 81002; 99213; G0378

== ENCOUNTER 2021-11-07 16:00 | Observation (INO) | payer OTHER | END 2021-11-07 16:45 | disposition home or self-care (01) | LOC: MED SURG 16:00 | PROVIDERS: ADMIT Obstetrics & Gynecology; ATTEND Obstetrics & Gynecology | DX: O24.419 Gestational diabetes mellitus in pregnancy, unspecified control (principal); Z3A.36 36 weeks gestation of pregnancy | CPT/HCPCS: 59025; G0378 ==

== ENCOUNTER 2021-11-14 12:55 | Observation (INO) | payer OTHER | END 2021-11-14 14:08 | disposition home or self-care (01) | LOC: WHC 12:55 → OB 13:29 | PROVIDERS: ADMIT Obstetrics & Gynecology; ATTEND Obstetrics & Gynecology | DX: O26.893 Other specified pregnancy related conditions, third trimester (principal); Z3A.37 37 weeks gestation of pregnancy | CPT/HCPCS: 59025; 59426; 87086; G0378; 81002 ==

== ENCOUNTER 2021-11-23 04:27 | Inpatient (IN) | payer OTHER ==
[2021-11-23 05:01] LABS: Hematocrit 29.2 % (35-47); Hemoglobin 8.5 gm/dl (12.0-16.0); Mean Cell Volume 71.7 fl (78-100); Mean Corpuscular Hemoglobin 20.9 pg (26-32); Mean Corpuscular Hgb Concent. 29.1 g/dl (32-36); Mean Platelet Volume 10.6 fl (7.5-11.0); Platelet Count 193 K/mm3 (150-450); Red Blood Count 4.07 M/mm3 (4.1-5.4); Red Cell Distribution Width 18.5 % (11.5-14.0); White Blood Count 13.3 K/mm3 (4.0-10.5)
[2021-11-23 05:10] LABS: Appearance SLIGHTLY CLOUDY (CLEAR); Bacteria RARE /HPF (NEGATIVE); Bilirubin NEGATIVE (NEGATIVE); Blood SMALL Ery/ul (0-5); Epithelial Cells FEW /HPF (FEW); Glucose NEGATIVE (NEGATIVE); Ketones SMALL (NEGATIVE); Leukocyte Esterase LARGE (NEGATIVE); Mucus SLIGHT /HPF (NEGATIVE); Nitrite NEGATIVE (NEGATIVE); Protein,Urine Dip NEGATIVE (Negative); Specific Gravity 1.012 (1.005-1.025); Urobilinogen NEGATIVE mg/dL (0-1)
[2021-11-23] MEDS ORDERED: Lactated Ringers 1,000 ML IV ONE (06:00)
[2021-11-23 06:06] LABS: Slide Review YES
[2021-11-23 06:11] LABS: Amphetamine,Urine NEGATIVE (NEGATIVE); Barbiturate,Urine NEGATIVE (NEGATIVE); Benzodiazepine,Urine NEGATIVE (NEGATIVE); Cocaine,Urine NEGATIVE (NEGATIVE); Methadone,Urine NEGATIVE (NEGATIVE); Opiate,Urine NEGATIVE (NEGATIVE); PCP,Urine NEGATIVE (NEGATIVE); THC,Urine NEGATIVE (NEGATIVE)
[2021-11-23 06:16] LABS: INR 0.96 (0.8-3.0); PROTIME 11.3 SECONDS (9.4-12.5)
[2021-11-23 06:18] LABS: PTT 24.2 SECONDS (25.1-36.5)
[2021-11-23] MEDS ORDERED: Reglan 10 MG/2 ML IV SCH (07:00)
[2021-11-23] MEDS ORDERED: CEFAZOLIN 2 GM-D5W BAG** 2 GM/50 ML ML IV SCH (07:00)
[2021-11-23] MEDS ORDERED: Lactated Ringers 1,000 ML IV SCH (07:00)
[2021-11-23] MEDS ORDERED: SOD CITRATE-CITRIC ACID SOLN PO SCH (07:00)
[2021-11-23] MEDS ORDERED: Pepcid 20 MG VIAL IV SCH (07:00)
[2021-11-23] MEDS ORDERED: Lactated Ringers 500 ML IV ONE (07:00)
[2021-11-23] MEDS ORDERED: Astramorph-Pf 5 MG/10 ML ONE (07:10)
[2021-11-23] MEDS ORDERED: Pitocin 10 UNITS/ML ONE ×2 (07:12→08:14)
[2021-11-23] MEDS ORDERED: PHENYLEPHRINE HCL ONE (07:56)
[2021-11-23] MEDS ORDERED: Marcaine 0.5%/Epinephrine 10 ML ONE (08:18)
[2021-11-23] MEDS ORDERED: DEMEROL 50 MG ONE (08:48)
[2021-11-23] MEDS ORDERED: Narcan 0.4 MG/ML IV PRN (10:00)
[2021-11-23] MEDS ORDERED: Zofran 4 MG/2 ML VIAL IV PRN (10:00)
[2021-11-23] MEDS ORDERED: Nubain 10 MG/ML IV PRN (10:00)
[2021-11-23] MEDS ORDERED: TYLENOL EXTRA STRENGTH 500 MG PO PRN (10:00)
[2021-11-23] MEDS ORDERED: HOLD NARCOTIC ANALGESICS AND SEDATIVES X24 HR MC PRN (10:00)
[2021-11-23] MEDS ORDERED: Anucort-HC SUPPOSITORY PR PRN (10:00)
[2021-11-23] MEDS ORDERED: Dextrose 5%-Lr IV Solution 1000 ML 1,000 ML IV SCH (10:00)
[2021-11-23] MEDS ORDERED: CLARITIN 10 MG PO PRN (10:00)
[2021-11-23] MEDS ORDERED: CORTISONE 1% CREAM TP PRN (10:00)
[2021-11-23] MEDS ORDERED: Mylicon 80MG PO PRN (10:00)
[2021-11-23] MEDS ORDERED: LANSINOH 40 GM TOP PRN (10:00)
[2021-11-23] MEDS ORDERED: MORPHINE SULFATE 2 MG INJ IV PRN (10:00)
[2021-11-23] MEDS ORDERED: PERCOCET TABLET 5/325MG PO PRN (10:00)
[2021-11-23] MEDS ORDERED: Sodium Chloride 0.9% 10 ML FLUSH Syringe IV SCH (10:00)
[2021-11-23] MEDS ORDERED: BENADRYL 50 MG/ML IV PRN (10:00)
[2021-11-23] MEDS: MOTRIN 400 MG PO PRN (10:53)
[2021-11-23 12:31] LABS: Appearance SLIGHTLY CLOUDY (CLEAR); Bacteria RARE /HPF (NEGATIVE); Bilirubin NEGATIVE (NEGATIVE); Blood NEGATIVE Ery/ul (0-5); Epithelial Cells RARE /HPF (FEW); Glucose NEGATIVE (NEGATIVE); Hyaline Casts 0-2 /LPF (0-2); Ketones MODERATE (NEGATIVE); Leukocyte Esterase NEGATIVE (NEGATIVE); Mucus MODERATE /HPF (NEGATIVE); Nitrite NEGATIVE (NEGATIVE); Protein,Urine Dip 30 (Negative); Specific Gravity 1.025 (1.005-1.025); Urobilinogen NEGATIVE mg/dL (0-1)
[2021-11-23] MEDS ORDERED: Ambien 10 MG PO PRN (22:00)
[2021-11-23] MEDS: FERREX 150 PO SCH (22:57)
[2021-11-23] MEDS: Colace 100 MG PO SCH (22:57)
[2021-11-24 06:52] LABS: Hematocrit 23.5 % (35-47); Mean Cell Volume 72.3 fl (78-100); Mean Corpuscular Hemoglobin 21.2 pg (26-32); Mean Corpuscular Hgb Concent. 29.4 g/dl (32-36); Mean Platelet Volume 11.4 fl (7.5-11.0); Platelet Count 162 K/mm3 (150-450); Red Blood Count 3.25 M/mm3 (4.1-5.4); Red Cell Distribution Width 18.4 % (11.5-14.0); White Blood Count 11.7 K/mm3 (4.0-10.5)
[2021-11-24 07:10] LABS: Hemoglobin 6.9 gm/dl (12.0-16.0)
[2021-11-24] MEDS: MOTRIN 400 MG PO PRN ×2 (08:21→20:08)
[2021-11-24] MEDS: Colace 100 MG PO SCH ×2 (08:21→21:16)
[2021-11-24] MEDS: FERREX 150 PO SCH ×3 (08:21→21:16)
[2021-11-24 08:32] LABS: ANISOCYTOSIS 1+; Lymphocytes 4 % (24-44); Monocyte 3 % (0.0-12.0); Neutrophils 93 % (36.0-66.0); Platelet Estimate NORMAL (NORMAL); Poikilocytosis 1+; Polychromasia 1+; Total Cells Counted 100
[2021-11-24 08:33] LABS: Hypochromia 1+
[2021-11-24] MEDS ORDERED: NORCO 5/325 MG PO PRN (10:00)
[2021-11-24] MEDS ORDERED: Dulcolax 10 MG SUPP PR PRN (10:00)
[2021-11-24] MEDS ORDERED: DEMEROL 50 MG IV PRN (10:00)
[2021-11-24] MEDS ORDERED: Rhogam Plus 300 MCG IM ONE (10:00)
[2021-11-24] MEDS ORDERED: Adacel Vial IM ONE (10:00)
--- NOTE | 2021-11-24 11:12 | PCM.NOTE ---
Date and Time: 11/24/21 1110 Subjective Assessment: POD 1 SP CSECTION PT RESTING IN BED AND DOING WELL ABLE TO AMBULATE AND TOLERATE DIET VSS AFEBRILE ABD; SOFT INCISION C/D/INTACT UTERUS; FIRM LOCHIA; MILD HGB; 6.9 A/P SP CSECTION POD 1 WITH POSTOP ANEMIA H/H STABLE. PT ASYMPTOMATIC WILL ANTICIPATE DISCHARGE TOMORROW OBJECTIVE DATA Vital Signs: Vital Signs - 24 hr Temp Pulse Resp BP Pulse Ox 11/24/21 07:00 98 11/24/21 06:00 97 11/24/21 05:07 98.8 F 91 H 16 98/56 99 11/24/21 05:00 98 11/24/21 04:00 98 11/24/21 03:00 98 11/24/21 02:25 98.9 F 103 H 16 103/55 97 11/24/21 02:00 97 11/24/21 01:00 96 11/24/21 00:00 97 11/23/21 23:00 99 11/23/21 22:00 98 H 97 11/23/21 21:00 97 11/23/21 20:00 98.9 F 92 H 16 106/59 96 11/23/21 19:00 98 11/23/21 18:00 97 11/23/21 17:00 95 11/23/21 16:00 97 11/23/21 15:00 97 11/23/21 14:00 97 11/23/21 13:00 95 11/23/21 12:00 97.7 F 88 20 105/63 97 Pain Assessment - Last Documented Pain Intensity 2 Pain Scale Used 0-10 Pain Scale Intake and Output: Intake & Output 11/21/21 11/22/21 11/23/21 11/24/21 11:59 11:59 11:59 11:59 Intake Total 5260 Output Total 3050 Balance 2210 Weight 90.265 kg Lab Results: Lab Results-Last 24 Hours 11/23/21 11/23/21 11/24/21 Range/Units 07:56 10:00 06:10 WBC 11.7 H (4.0-10.5) K/mm3 RBC 3.25 L (4.1-5.4) M/mm3 Hgb 6.9 L* (12.0-16.0) gm/dl Hct 23.5 L (35-47) % MCV 72.3 L (78-100) fl MCH 21.2 L (26-32) pg MCHC 29.4 L (32-36) g/dl RDW 18.4 H (11.5-14.0) % Plt Count 162 (150-450) K/mm3 MPV 11.4 H (7.5-11.0) fl Segmented Neutrophils 93 H (36.0-66.0) % Lymphocytes (Manual) 4 L (24-44) % Monocytes (Manual) 3 (0.0-12.0) % Hypochromia 1+ Platelet Estimate NORMAL (NORMAL) RBC Morphology ABNORMAL Polychromasia 1+ Poikilocytosis 1+ Anisocytosis 1+ Urine Color YELLOW (YELLOW) Urine Appearance SLIGHTLY CLOUDY (CLEAR) Urine pH 5.0 (5-6) Ur Specific [place] 1.025 (1.005-1.025) Urine Protein 30 (Negative) Urine Ketones MODERATE (NEGATIVE) Urine Blood NEGATIVE (0-5) Jc/ul Urine Nitrite NEGATIVE (NEGATIVE) Urine Bilirubin NEGATIVE (NEGATIVE) Urine Urobilinogen NEGATIVE (0-1) mg/dL Ur Leukocyte Esterase NEGATIVE (NEGATIVE) Urine WBC (Auto) 3-5 (0-5) /HPF Urine RBC (Auto) 3-5 (0-2) /HPF U Hyaline Cast (Auto) 0-2 (0-2) /LPF U Epithel Cells (Auto) RARE (FEW) /HPF Urine Bacteria (Auto) RARE (NEGATIVE) /HPF Urine Mucus (Auto) MODERATE (NEGATIVE) /HPF Urine Glucose NEGATIVE (NEGATIVE) mg/dL Screen SEE SEPARATE REPORT Assessment/Plan (1) Status post repeat low transverse section Current Visit: Yes Status: Acute Code(s): Z98.891 - HISTORY OF UTERINE SCAR FROM PREVIOUS SURGERY (2) Postoperative anemia Current Visit: Yes Status: Acute Code(s): D64.9 - ANEMIA, UNSPECIFIED
[2021-11-25] MEDS: MOTRIN 400 MG PO PRN (08:18)
[2021-11-25] MEDS: Colace 100 MG PO SCH (08:18)
[2021-11-25] MEDS: FERREX 150 PO SCH (08:18)
[2021-11-25 09:16] VITALS: BP 121/68; PULSE 108; O2SAT 98
[2021-11-25] MEDS ORDERED: THERAGRAN MULTIVITAMIN PO SCH (10:00)
--- NOTE | 2021-11-25 10:36 | PCM.NOTE ---
Date and Time: 11/25/21 1034 Subjective Assessment: pod 2 pt resting in bed and doing well able to ambulate and tolerate diet. vss afebrile abd; soft incision c/d/intact uterus; firm lochia; mild a/p sp csection pod 2 dc home today will advise iron supplementation for anemia OBJECTIVE DATA Vital Signs: Vital Signs - 24 hr Temp Pulse Resp BP Pulse Ox 11/25/21 08:00 98.1 F 108 H 18 121/68 98 11/25/21 02:00 98.6 F 96 H 18 114/62 97 11/24/21 20:00 98.4 F 105 H 18 115/63 97 11/24/21 17:00 98.2 F 111 H 18 119/81 97 11/24/21 11:00 98.1 F 88 18 110/62 98 Pain Assessment - Last Documented Pain Intensity [Anterior] 2 Pain Intensity 2 Pain Scale Used 0-10 Pain Scale Intake and Output: Intake & Output 11/22/21 11/23/21 11/24/21 11/25/21 11:59 11:59 11:59 11:59 Intake Total 5260 1500 Output Total 3050 Balance 2210 1500 Weight 90.265 kg Assessment/Plan (1) Status post repeat low transverse section Current Visit: Yes Status: Acute Code(s): Z98.891 - HISTORY OF UTERINE SCAR FROM PREVIOUS SURGERY (2) Postoperative anemia Current Visit: Yes Status: Acute Code(s): D64.9 - ANEMIA, UNSPECIFIED
--- NOTE | 2021-11-25 10:39 | PCM.DS ---
Discharge Summary Date of Admission: 11/23/21 04:27 Admitting Physician: DWAYNE WHITE DO Consults: Consults on Case 11/23/21 10:00 Notify Anesthesia Provider PRN Notify Physician ROUTINE 11/23/21 10:15 Navigation ONCE Primary Care Provider: NO FAMILY DOCTOR Allergies Allergies No Known Drug Allergies Allergy (Verified 10/20/21 14:44) Hospital Summary - Hospital Course Hospital Course: pt admitted on nov 23 for undergoing repeat csection and underwent procedure without complication. during postop period did well able to ambulate and tolerate diet. pt was noted having a hgb level of 6.9 postoperatively however stable and was placed on iron supplementation tid. preop hgb was 8.5. all questions answered to her satisfaction and was advised to fu in office in 2 wks. pt had been taking ibuprofen for pain management and states not requiring any stronger medication. pt was advised to fu in office in 2 wks - Vitals & Intake/Output Vital Signs: Vital Signs Temperature 98.1 F 11/25/21 08:00 Pulse Rate 108 H 11/25/21 08:00 Respiratory Rate 18 11/25/21 08:00 Blood Pressure 121/68 11/25/21 08:00 O2 Sat by Pulse Oximetry 98 11/25/21 08:00 Intake & Output: Intake & Output 11/22/21 11/23/21 11/24/21 11/25/21 11:59 11:59 11:59 11:59 Intake Total 5260 1500 Output Total 3050 Balance 2210 1500 Weight 90.265 kg - Lab Result Diagrams: 11/24/21 06:10 Micro Results-Entire Visit: Microbiology 11/23/21 07:56 Urine Culture - Final Catherized <10K NORMAL SKIN HERMELINDO PROBABLE SKIN CONTAMINANT 11/23/21 04:58 Urine Culture - Final Clean Catch Midstream MIXED HERMELINDO; 3 OR MORE TYPES. NO PREDOMINANT ORGANISM. NO FURTHER WORKUP. PLEASE RESUBMIT IF CLINICALLY INDICATED. - Procedures and Test Procedures and Tests throughout Hospitalization: Therapy Orders & Screens 11/23/21 09:18 Standby STAT Comment: Diagnosis: KETURAH REPEAT Final Diagnosis/Problem List - Final Discharge Diagnosis/Problem (1) Status post repeat low transverse section Current Visit: Yes Status: Acute Code(s): Z98.891 - HISTORY OF UTERINE SCAR FROM PREVIOUS SURGERY (2) Postoperative anemia Current Visit: Yes Status: Acute Code(s): D64.9 - ANEMIA, UNSPECIFIED - Discharge Disposition: Home, Self-Care Condition: Stable Prescriptions: New Ferric Citrate [Auryxia] 210 mg PO Q8H PRN PRN 30 Days #90 tablet PRN Reason: Anemia No Action Metformin HCl 500 mg [Glucophage 500 MG] 500 mg PO BID Vits96/Iron Fum/Folic [ Tablet] 1 tab PO DAILY Follow up with: DWAYNE WHITE DO [ACTIVE STAFF] - 2 weeks (keep incision clean and dry no heavy lifting) Forms: OB Discharge Instructions
--- NOTE | 2021-11-26 13:05 | OP ---
SURGERY DATE/TIME: 11/23/2021 0739 PREOPERATIVE DIAGNOSIS: Intrauterine at 39 weeks gestation with previous section with current breech presentation. POSTOPERATIVE DIAGNOSIS: Intrauterine at 39 weeks gestation with previous section with current breech presentation. PROCEDURE: Repeat section, low flap transverse uterine incision, Pfannenstiel skin incision. SURGEON: Ever Hanson D.O. HEAD BUTLER: Helen Alvarez and Bree Kwok, surgical technicians. ANESTHESIA: Spinal. ESTIMATED BLOOD LOSS: 400 cc. COMPLICATIONS: None. INDICATIONS: The risks, benefits, indications and alternatives of the procedure were reviewed with the patient prior to procedure. The patient understood the risk of infection, bleeding, bowel injury, bladder injury, ureteral injury, uterine perforation, pelvic infection, thromboembolic disorder associated with the surgery and desires to have this surgery as a possible means to alleviate her current medical condition. DESCRIPTION OF PROCEDURE AND FINDINGS: At this point the patient is taken to the operating room where her spinal anesthesia was found to be adequate. She was then prepped and draped in normal sterile fashion in the dorsal supine position with leftward tilt. A Pfannenstiel skin incision is made with a scalpel and carried through to the underlying layer of the fascia with a Bovie. The fascia was then incised in the midline and the incision extended laterally with Garcia scissors. The superior aspect of the fascial incision was then grasped Cheryl clamps elevated and the underlying rectus muscles dissected off bluntly. Attention is then turned to the inferior aspect of this incision which in similar fashion was grasped, tented up with Cheryl clamps and the rectus muscles dissected off bluntly. The rectus muscles were then at the midline and the peritoneum identified, tented up and entered sharply with Metzenbaum scissors. The peritoneal incision was then extended superiorly and inferiorly with good visualization of the bladder. The bladder blade was then inserted and the vesicouterine peritoneum identified, grasped with a pickup and entered sharply with Metzenbaum scissors. This incision was then extended laterally and the bladder flap created digitally. The bladder blade was then re-inserted and the lower uterine segment incised in transverse fashion with a scalpel. The uterine incision was then extended laterally with bandage scissors. The bladder blade was then removed and the infant was delivered first with the buttocks. She was noted to be in breech presentation followed by the lower extremities, followed by the trunk and finally the upper extremities and head. The nose and mouth were suctioned with bulb suction and the cord clamped and cut. The was then handed off to the awaiting nurses. The placenta was then removed manually. The uterus exteriorized and cleared of all clots and debris. The uterine incision was repaired with 1-0 chromic in a running locked fashion. The second layer of the same suture was used to obtain excellent hemostasis. The uterus is then returned to the abdomen. The gutters were cleared of all clots and the peritoneum muscles closed in interrupted fashion using 2-0 chromic suture. The fascia was re-approximated with 0 Vicryl in a running fashion. The subcutaneous layer was closed with 3-0 Vicryl suture and the skin was closed with absorbable wendy called INSORB. The patient tolerated the procedure well. Sponge, lap, needle and instrument counts were correct x2. The patient was then taken to the recovery room in stable condition. The patient delivered a live baby girl at 0807 hours. The weight of the baby was 8 pounds 6 ounces. 's were 9 at 1 minute and 9 at 5 minutes.
== END 2021-11-25 12:51 | disposition home or self-care (01) | DRG 788 ==
LOC: OB 04:27
PROVIDERS: ADMIT Obstetrics & Gynecology; ATTEND Obstetrics & Gynecology
PROC: 10D00Z1 Extraction of Products of Conception, Low, Open Approach (ICD-10-PCS; principal; 2021-11-23)
DX: O32.1XX0 Maternal care for breech presentation, not applicable or unspecified (principal); Z37.0 Single live birth; Z3A.39 39 weeks gestation of pregnancy; D64.9 Anemia, unspecified; Z98.891 History of uterine scar from previous surgery; Z20.828 Contact with and (suspected) exposure to other viral communicable diseases
CPT/HCPCS: 36415; 62322; 64488; 76937; 76942; 80307; 81001; 85025; 85027; 85461; 85610; 85730; 87086; 90471; 90715; 94799; 96372; J0690; J2175; J2274; J2370; J2590; J2790; L0625; A9270-GY